=== PATIENT | female | born 1990 | race American Indian/Alaskan Native ===

== ENCOUNTER 2017-02-02 10:03 | Emergency (ER) | payer SELFPAY ==
[2017-02-02 10:29] VITALS: BP 104/65
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
== END 2017-02-02 13:17 | disposition home or self-care (01) ==
LOC: ED 10:03
DX: S29.012A Strain of muscle and tendon of back wall of thorax, initial encounter (principal); V47.5XXA Car driver injured in collision with fixed or stationary object in traffic accident, initial encounter; Y93.89 Activity, other specified; Y99.8 Other external cause status; Y92.488 Other paved roadways as the place of occurrence of the external cause
CPT/HCPCS: 81025; 99283